=== PATIENT | female | born 1980 | race Caucasian/White ===

== ENCOUNTER 2018-08-04 09:22 | Emergency (ER) | payer MEDICAID ==
[2018-08-04] MEDS: ACETAMINOPHEN 500 MG TAB PO (10:07)
== END 2018-08-04 11:21 | disposition home or self-care (01) ==
LOC: E/R 09:22
DX: S20.01XA Contusion of right breast, initial encounter (principal); S13.9XXA Sprain of joints and ligaments of unspecified parts of neck, initial encounter; I10 Essential (primary) hypertension; V89.2XXA Person injured in unspecified motor-vehicle accident, traffic, initial encounter
CPT/HCPCS: 71046; 99283-25